=== PATIENT | female | born 1990 | race Caucasian/White ===

== ENCOUNTER 2018-11-24 05:48 | Day surgery (SDC) | payer OTHER ==
[2018-11-24] MEDS ORDERED: PROPOFOL 200 MG/20 ML VIAL IV ONE (07:00)
[2018-11-24] MEDS ORDERED: LIDOCAINE 1% 10 ML VIAL INJ ONE (07:00)
[2018-11-24] MEDS ORDERED: SODIUM CHLORIDE 0.9% 50 ML VIAL ONE (07:00)
[2018-11-24] MEDS ORDERED: METOCLOPRAMIDE HCL INJ 10 MG/2 ML VIAL ONE (07:00)
[2018-11-24] MEDS ORDERED: raNITIdine HCL INJ 25 MG/ML VIAL ONE (07:00)
[2018-11-24] MEDS ORDERED: DEXAMETHASONE INJ 10 MG/ML VIAL ONE (07:00)
[2018-11-24] MEDS ORDERED: BUPIVACAINE 0.25% W/EPI 50 ML VIAL INJ ONE (07:27)
[2018-11-24] MEDS ORDERED: ceFAZolin SODIUM 1 GM VIAL ONE (11:58)
[2018-11-24] MEDS ORDERED: LACTATED RINGERS 1,000 ML ONE (11:58)
[2018-11-24] MEDS ORDERED: SODIUM CHL 0.9% 100ML MINI-BAG 100 ML IVPB ONE (11:58)
[2018-11-24] MEDS ORDERED: fentaNYL CITRATE INJ 50 MCG/ML AMP ONE (12:51)
[2018-11-24] MEDS ORDERED: MIDAZOLAM INJ 2 MG/2 ML VIAL ONE (12:51)
[2018-11-24] MEDS ORDERED: MEPERIDINE HCL 50 MG/ML VIAL ONE (14:09)
[2018-11-24] MEDS ORDERED: KETOROLAC TROMETHAMINE INJ 30 MG/ML VIAL ONE (14:12)
--- NOTE | 2018-11-24 14:25 | OP ---
DATE OF PROCEDURE: 11/24/18 PREOPERATIVE DIAGNOSIS: 1. Reducible ventral hernia. POSTOPERATIVE DIAGNOSIS: 1. Reducible ventral hernia. PROCEDURE: 1. Repair of ventral hernia with Surgimesh Onlay graft. SURGEON: Tomas Gonzalez MD. COMMUNITY OUTREACH COORDINATOR: None. ANESTHESIA: General laryngeal mask anesthesia and local infiltration of 0.25% Marcaine with epinephrine. INDICATION: The patient is a 28-year-old female who after her second noted this mass. It has become somewhat more uncomfortable, especially with movement. There was no discrete injury. The patient was brought to the Surgical Suite today for herniorrhaphy after the risks, benefits and alternatives to the procedure were discussed and accepted. FINDINGS: The defect was approximately 1 by 1.5 cm, about 1.5 to 2 cm above the umbilicus and slightly to the patient's right side. There was omentum within it. PROCEDURE: After adequate general laryngeal mask anesthesia was obtained, the patient was prepped and draped in the usual sterile manner in the supine position. At this point, a surgical time-out was taken. A curvilinear incision was made over the umbilicus, first with a marking pen, then with infiltration of anesthesia, followed by a sharp knife. Dissection was carried down through the skin and subcutaneous tissue using electrocautery and blunt dissection. The hernia and sac was identified. Dissection was carried around it circumferentially. At this time, the subcutaneous fat was dissected free around the fascial defect in all directions. This came all the way down to the umbilicus, which was left intact as there was no defect there. At this point, the hernia sac was dissected free circumferentially and reduced below the fascia. The fascia was then repaired with 2-0 Vicryl [id number] sutures. These were placed serially and then tied and cut. When this was done, the wound was irrigated with saline. Hemostasis was noted to be adequate, so at this point a 5.5 by 4 cm graft was fashioned that had legs that went inferiorly along either side of the umbilicus and to either side of the repair. These were sutured in place with interrupted 2-0 Prolene sutures. Again, the wound was irrigated with saline. The mesh was in excellent position. At this point, the subcutaneous tissue was reapproximated with two rows of 3-0 Vicryl sutures. The skin edges were approximated with skin stapler. Sterile pressure dressing was applied. An abdominal binder was applied. The patient was awakened and taken to the Recovery Room in stable condition. Estimated blood loss was less than 50 mL. All sponge, needle and instrument counts were correct. #[id number] [facility]
[2018-11-24] MEDS ORDERED: HYDROmorphone HCL INJ 2 MG/ML VIAL ONE (14:30)
[2018-11-24 16:09] VITALS: BP 98/61; TEMP 98.7; O2SAT 98
== END 2018-11-24 16:00 | disposition home or self-care (01) ==
LOC: AMB 05:48
PROVIDERS: ATTEND Surgery
DX: K43.9 Ventral hernia without obstruction or gangrene (principal)
CPT/HCPCS: 00832; 36415; 49560; 49568; 81001; 81025; 85025; 87086; A4216; C1781; J0690; J1100; J1170; J1885; J2175; J2250; J2765; J2780; J3010; J3490; J7050; J7120